=== PATIENT | female | born 1940 | race Caucasian/White ===

== ENCOUNTER → 2020-08-28 | Outpatient (CLI) | payer MEDICARE, BC ==
[~2020-08-28] MED LIST: ALPR.25 PO; ASCO500; B-100 COMPLEX100 MG PO; BETA.05TCA; BIOTIN1 MG PO; Bactrim Ds Tab1 EACH PO; CENTRUM SILVER1 EAC2 PO; CEPH500 PO; CONEST.3 PO; Calcium + Vita1 EACH PO; ERGO50000 PO; Imitrex100 MG PO; LANS30EC PO; LANS30PKT PO; LIQUID SILVER; LOSA50 PO; LOVA20 PO; Lovastatin20 MG PO; MINO100 PO; PANT20 PO; SUMA25 PO; TRAM50 PO; TRIHYD253A PO; VERA120ERB PO; VERAPAMIL HCL PO; WARF2.5 PO; ZINC15; Zofran Odt4 MG SL
== END ==
LOC: LAB SHORT 14:44 → LAB 14:44
DX: D48.5 Neoplasm of uncertain behavior of skin (principal)
CPT/HCPCS: 88305

== ENCOUNTER 2021-01-18 10:04 | Emergency (ER) | payer MEDICARE, BC ==
[~2021-01-18] VITALS: Ht 165.1 cm; Wt 61.2 kg
[2021-01-18] MEDS ORDERED: FAMO40 (10:32)
[2021-01-18] MEDS ORDERED: METFORMIN HCL500 M2 PO (10:33)
[2021-01-18] MEDS ORDERED: ZOLOFT50 MG PO (10:33)
[2021-01-18] MEDS ORDERED: ALENDRONATE SOD PO (10:35)
[2021-01-18] MEDS ORDERED: XANAX0.25 MG PO (10:35)
[2021-01-18] MEDS ORDERED: LOSARTAN POTASS25 M2 PO (10:37)
[2021-01-18 10:38] LABS: BASOPHILS ABSOLUTE AUTO 0.07 K/mm3 (0.00-0.23); BASOPHILS PERCENT AUTO 1 % (0-2); EOSINOPHILS ABSOLUTE AUTO 0.05 K/mm3 (0.00-0.68); EOSINOPHILS PERCENT AUTO 1 % (0-6); Hematocrit 49.9 % (33.0-51.0); Hemoglobin 16.8 g/dL (11.5-16.0); IMMATURE GRAN ABSOLUTE AUTO 0.04 K/mm3 (0.00-0.10); IMMATURE GRAN PERCENT AUTO 0 % (0-1); LYMPHOCYTES ABSOLUTE AUTO 1.21 K/mm3 (0.84-5.20); LYMPHOCYTES PERCENT AUTO 12 % (21-46); MONOCYTES ABSOLUTE AUTO 0.81 K/mm3 (0.16-1.47); MONOCYTES PERCENT AUTO 8 % (4-13); Mean Corpuscular HGB 30.9 pg (26.0-34.0); Mean Corpuscular HGB Conc 33.7 g/dL (31.5-36.5); Mean Corpuscular Volume 92 fL (80-100); Mean Platelet Volume 9.4 fL (9.1-12.4); NEUTROPHILS ABSOLUTE AUTO 7.83 K/mm3 (1.96-9.15); NEUTROPHILS PERCENT AUTO 78 % (41-73); Platelet Count 370 K/mm3 (150-400); RDW Coefficient Variation 13.1 % (11.7-14.2); RDW Standard Deviation 44.1 fL (35.1-46.3); Red Blood Cell Count 5.44 M/mm3 (3.80-5.20); White Blood Cell Count 10.01 K/mm3 (4.00-11.30)
[2021-01-18 10:52] LABS: Alanine Aminotransfer (ALT/SGP 38 U/L (12-78); Albumin, Blood 3.9 g/dL (3.4-5.0); Alk Phos 76 U/L (50-136); Anion Gap 5 mmol/L (6-16); Aspartate Aminotrans (AST/SGOT 17 U/L (12-37); Bilirubin, Total 1.2 mg/dL (0.1-1.0); Blood Urea Nitrogen 12 mg/dL (8-24); Bun/Creatinine Ratio 19.4 (12.0-20.0); CO2, Blood 27 mmol/L (21-32); Calcium, Blood 9.1 mg/dL (8.5-10.1); Chloride, Blood 107 mmol/L (98-108); Creatinine, Blood 0.62 mg/dL (0.40-1.00); Globulin, Blood 4.1 g/dL (2.2-4.0); Glomerular Filtration Rate >60 (60-); Glucose, Blood 139 mg/dL (70-99); Potassium, Blood 4.1 mmol/L (3.5-5.5); Sodium, Blood 139 mmol/L (136-145); Troponin I <0.015 ng/mL (0.000-0.040)
== END 2021-01-18 12:48 | disposition home or self-care (01) ==
LOC: ER 10:04
PROVIDERS: Emergency Medicine
DX: R00.2 Palpitations (principal); Z88.1 Allergy status to other antibiotic agents; Z88.5 Allergy status to narcotic agent; Z79.899 Other long term (current) drug therapy; Z79.84 Long term (current) use of oral hypoglycemic drugs; I10 Essential (primary) hypertension; E11.9 Type 2 diabetes mellitus without complications; K21.9 Gastro-esophageal reflux disease without esophagitis; Z87.891 Personal history of nicotine dependence
CPT/HCPCS: 36415; 71046; 80053; 83690; 83880; 84443; 84484; 85025; 93005; 93010; 93242; 96374; 96375; 99285-25; J0780; J1200; J1885; J7030

== ENCOUNTER 2023-07-02 10:59 | Day surgery (SDC) | payer MEDICARE, BC ==
[~2023-07-02] VITALS: Ht 162.6 cm; Wt 55.6 kg
[~2023-07-02 10:59] MED LIST changes: +ALENDRONATE SOD PO; +FAMO40; +LOSARTAN POTASS25 M2 PO; +Lactated Ringer's 1,000 ML IV ONE; +METFORMIN HCL500 M2 PO; +XANAX0.25 MG PO; +ZOLOFT50 MG PO; +propofoL 50 ML IV ONE
[2023-07-02] MEDS ORDERED: PROBIOTIC1 EA14 (11:58)
[2023-07-02] MEDS ORDERED: MELATONIN5 M1 (11:59)
[2023-07-02] MEDS ORDERED: METO25ER (11:59)
[2023-07-02] MEDS ORDERED: CLINDAGEL75 ML (11:59)
[2023-07-02] MEDS ORDERED: Flonase 0.05% N16 GM (11:59)
[2023-07-02] MEDS ORDERED: Lactated Ringer's 1,000 ML IV ONE (12:38)
[2023-07-02] MEDS ORDERED: Ondansetron HCl 2 MG / ML 2ML Vial ONE (13:49)
[2023-07-02] MEDS ORDERED: propofoL 0 ML IV ONE (13:49)
[2023-07-02] MEDS ORDERED: Lidocaine 2% 5 ML SDV ONE (14:04)
[2023-07-02 14:38] VITALS: BP 148/92
== END 2023-07-02 14:38 | disposition home or self-care (01) ==
LOC: ORSCSDS 10:59
PROVIDERS: Internal Medicine Gastroenterology
PROC: 0DJ08ZZ Inspection of Upper Intestinal Tract, Via Natural or Artificial Opening Endoscopic (ICD-10-PCS; principal; 2023-07-02 12:30)
PROC: 0DJD8ZZ Inspection of Lower Intestinal Tract, Via Natural or Artificial Opening Endoscopic (ICD-10-PCS; principal; 2023-07-02 12:30)
DX: Z12.11 Encounter for screening for malignant neoplasm of colon (principal); Z86.010 Personal history of colon polyps; K21.9 Gastro-esophageal reflux disease without esophagitis; K44.9 Diaphragmatic hernia without obstruction or gangrene; K57.30 Diverticulosis of large intestine without perforation or abscess without bleeding; D48.5 Neoplasm of uncertain behavior of skin; I10 Essential (primary) hypertension; E78.5 Hyperlipidemia, unspecified; F41.8 Other specified anxiety disorders; Z85.3 Personal history of malignant neoplasm of breast; Z87.891 Personal history of nicotine dependence; E11.9 Type 2 diabetes mellitus without complications; Z79.899 Other long term (current) drug therapy
CPT/HCPCS: 43235; G0105; J2405; J2704; J7120

== ENCOUNTER 2024-01-14 10:58 | Emergency (ER) | payer MEDICARE, BC ==
[~2024-01-14] VITALS: Ht 165.1 cm; Wt 59.0 kg
[~2024-01-14 10:58] MED LIST changes: +CLINDAGEL75 ML; +Flonase 0.05% N16 GM; -Lactated Ringer's 1,000 ML IV ONE; +MELATONIN5 M1; +METO25ER; +PROBIOTIC1 EA14; -propofoL 50 ML IV ONE
[2024-01-14 11:25] LABS: BASOPHILS ABSOLUTE AUTO 0.07 K/mm3 (0.00-0.23); BASOPHILS PERCENT AUTO 1 % (0-2); EOSINOPHILS ABSOLUTE AUTO 0.08 K/mm3 (0.00-0.68); EOSINOPHILS PERCENT AUTO 1 % (0-6); Hematocrit 46.6 % (33.0-51.0); Hemoglobin 16.2 g/dL (11.5-16.0); IMMATURE GRAN ABSOLUTE AUTO 0.07 K/mm3 (0.00-0.10); IMMATURE GRAN PERCENT AUTO 1 % (0-1); LYMPHOCYTES ABSOLUTE AUTO 1.51 K/mm3 (0.84-5.20); LYMPHOCYTES PERCENT AUTO 12 % (21-46); MONOCYTES ABSOLUTE AUTO 1.17 K/mm3 (0.16-1.47); MONOCYTES PERCENT AUTO 10 % (4-13); Mean Corpuscular HGB 31.8 pg (26.0-34.0); Mean Corpuscular HGB Conc 34.8 g/dL (31.5-36.5); Mean Corpuscular Volume 92 fL (80-100); Mean Platelet Volume 9.2 fL (9.1-12.4); NEUTROPHILS ABSOLUTE AUTO 9.45 K/mm3 (1.96-9.15); NEUTROPHILS PERCENT AUTO 77 % (41-73); Platelet Count 183 K/mm3 (150-400); RDW Standard Deviation 44.4 fL (35.1-46.3); Red Blood Cell Count 5.09 M/mm3 (3.80-5.20); White Blood Cell Count 12.35 K/mm3 (4.00-11.30)
[2024-01-14 11:49] LABS: Albumin, Blood 3.8 g/dL (3.4-5.0); Albumin/Globulin Ratio 1.1 (0.8-1.8); Bilirubin, Total 1.1 mg/dL (0.1-1.0); Bun/Creatinine Ratio 23.3 (12.0-20.0); Calcium, Blood 9.4 mg/dL (8.5-10.1); Creatinine, Blood 0.52 mg/dL (0.40-1.00); Globulin, Blood 3.4 g/dL (2.2-4.0); Potassium, Blood 3.9 mmol/L (3.5-5.5); Total Protein, Blood 7.2 g/dL (6.4-8.2)
[2024-01-14 16:00] VITALS: BP 163/85
== END 2024-01-14 16:05 | disposition home or self-care (01) ==
LOC: ER 10:58
PROVIDERS: Physician Assistant
DX: R00.2 Palpitations (principal); I10 Essential (primary) hypertension; K21.9 Gastro-esophageal reflux disease without esophagitis; E11.9 Type 2 diabetes mellitus without complications; Z87.891 Personal history of nicotine dependence; Z79.899 Other long term (current) drug therapy; Z88.1 Allergy status to other antibiotic agents; Z88.5 Allergy status to narcotic agent; Z88.8 Allergy status to other drugs, medicaments and biological substances
CPT/HCPCS: 80053; 84484; 85025; 93005; 93010; 93242; 99285-25